=== PATIENT | male | born 1960 | race American Indian/Alaskan Native ===

== ENCOUNTER 2019-07-31 09:03 | Day surgery (SDC) | payer OTHER ==
[2019-07-31] MEDS ORDERED: LIDOCAINE MPF (2%) 20 MG/1 ML VIAL 5 ML ONE (09:30)
[2019-07-31] MEDS: SODIUM CHLORIDE 0.9% 1000 ML 1,000 ML IV SCH (10:00)
--- NOTE | 2019-07-31 10:05 | Anesthesia Consultation ---
Anesthesia Consult and Med Hx Date of service: 07/31/19 - Airway Anesthetic Teeth Evaluation: Poor, Partials ROM Head & Neck: Adequate Mental/Hyoid Distance: Adequate Mallampati Class: Class III Intubation Access Assessment: Possibly Difficult - Pulmonary Exam CTA: Yes - Cardiac Exam Cardiac Exam: RRR - Pre-Operative Health Status ASA Pre-Surgery Classification: ASA2 Proposed Anesthetic Plan: MAC - Pulmonary Hx Smoking: No Hx Respiratory Symptoms: No Hx Sleep Apnea: Yes (no CPAP in several years) - Cardiovascular System Hx Hypertension: Yes (took lisinopril this morning) Hx Heart Attack/AMI: No - Central Nervous System CVA: No Hx Back Pain: Yes Hx Psychiatric Problems: Yes (depression) - Gastrointestinal Hx Gastroesophageal Reflux Disease: No - Endocrine Hx Renal Disease: No Hx Liver Disease: No Hx Insulin Dependent Diabetes: No Hx Non-Insulin Dependent Diabetes: No Hx Thyroid Disease: No - Other Systems Hx Obesity: No
--- NOTE | 2019-07-31 10:05 | Anesthesia Day of Surgery ---
Anesthesia Day of Surgery - Day of Surgery Patient Examined: Yes Patient H&P Reviewed: Yes Patient is NPO: Yes
[2019-07-31] MEDS ORDERED: PROPOFOL 200 MG/20 ML VIAL IV ONE ×2 (11:10)
--- NOTE | 2019-07-31 11:36 | Procedure Note ---
Date of procedure: 07/31/19 Pre-op diagnosis: Colon Polyp Screening Post-op diagnosis: other (Solitary (12 mm) Sessile Polyp in the Proximal Transverse colon (removed by cold biopsy)/ Minor,Internal Hemorrhoid) Procedure: Colonoscopy with Cold , Snare Polypectomy Anesthesia: MAC Surgeon: CARLA PADILLA Estimated blood loss: minimal Pathology: list Specimen disposition: to lab Condition: stable Disposition: same day (Avoid aspirin and NSAID for 4 days; otherwise resume home medication and follow up in 1 to 2 weeks ([phone]).)
[2019-07-31 12:24] VITALS: BP 112/73
--- NOTE | 2019-07-31 12:47 | Post Anesthesia Evaluation ---
- Post Anesthesia Evaluation Patient Participated: Yes Airway Patent: Yes Stable Respiratory Function: Yes Nausea/Vomiting: No Temp > 96.8F: Yes Pain Manageable: Yes Adequeate Hydration: Yes Anesthesia Complications: No
--- NOTE | 2019-07-31 14:54 | Operative Report ---
PROCEDURE: Colonoscopy. INDICATIONS: A 59-year-old -[place] gentleman who had a colonoscopy done as part of colon polyp screening. DESCRIPTION OF PROCEDURE: Procedure was done after getting informed consent with MAC anesthesia. Initial rectal exam was unremarkable. Instrument was passed through the rectum onto the cecum, which was identified with ileocecal valve and appendiceal orifice. Visualization was fair to good on the retroverted view. A 12 mm sessile polyp was noted in the proximal transverse colon. This was removed by cold snare polypectomy and retrieved. The cecum and ascending colon showed normal mucosa in the proximal colon, as stated above. There was a 12 mm sessile polyp that was removed by cold snare polypectomy and retrieved. The remaining part of the transverse colon, descending colon, and sigmoid showed normal mucosa and the rectum showed minor internal hemorrhoid on the retroverted view. There was minimal bleeding from the biopsy sites and no complications associated with the procedure. ASSESSMENT: Colon polyp screening, solitary 12 mm sessile polyp in the proximal transverse colon removed by cold snare polypectomy and retrieved. Minor internal hemorrhoid. There is minimal bleeding associated with the procedure. No complications associated with the procedure. The patient will be asked to avoid aspirin and aspirin-related products for the next 4 days and follow up in the office in 1-2 weeks' time. Possibly a repeat colonoscopy may be done in a year's time. The procedure was done in the GI lab with assistance of the GI lab team, which included RNKeesha; the member of technical staff, and with assistance of anesthesia. JOB# [id number] JUAN LUIS/NIYAH HOLLAND
== END 2019-07-31 12:34 | disposition home or self-care (01) ==
LOC: GIO 09:03
DX: Z12.11 Encounter for screening for malignant neoplasm of colon (principal); D12.3 Benign neoplasm of transverse colon; K64.8 Other hemorrhoids; G47.33 Obstructive sleep apnea (adult) (pediatric); I10 Essential (primary) hypertension; M19.90 Unspecified osteoarthritis, unspecified site; F32.9 Major depressive disorder, single episode, unspecified; E78.5 Hyperlipidemia, unspecified; Z79.899 Other long term (current) drug therapy; Z98.890 Other specified postprocedural states
CPT/HCPCS: 45385; 88305; J2704; J7030